=== PATIENT | female | born 1990 | race Caucasian/White ===

== ENCOUNTER → 2017-10-10 | Outpatient (CLI) | payer OTHER ==
[~2017-10-10] MED LIST: AZATHIOPRINE; CIPR500; HYDACE5 PO; IRON; MESA250ER; MULVITMINE; PROM25 PO; REMICADE
== END | disposition home or self-care (01) ==
LOC: LAB EV 10:44
DX: H60.12 Cellulitis of left external ear (principal)
CPT/HCPCS: 87070; 87075; 87077; 87147; 87186; 87205

== ENCOUNTER → 2018-01-31 | Outpatient (CLI) | payer OTHER | END | disposition home or self-care (01) | LOC: LAB SHORT 18:54 → LAB EV 18:54 | DX: H60.399 Other infective otitis externa, unspecified ear (principal) | CPT/HCPCS: 87070; 87186 ==

== ENCOUNTER 2020-03-07 00:46 | Day surgery (SDC) | payer OTHER | END 2020-03-07 22:50 | disposition home or self-care (01) | LOC: WOUND 00:46 | DX: L98.422 Non-pressure chronic ulcer of back with fat layer exposed (principal); A49.02 Methicillin resistant Staphylococcus aureus infection, unspecified site; F17.210 Nicotine dependence, cigarettes, uncomplicated; Z88.6 Allergy status to analgesic agent; Z88.8 Allergy status to other drugs, medicaments and biological substances | CPT/HCPCS: G0463 ==

== ENCOUNTER 2020-03-14 00:41 | Day surgery (SDC) | payer OTHER | END 2020-03-14 23:11 | disposition home or self-care (01) | LOC: WOUND 00:41 | DX: L98.422 Non-pressure chronic ulcer of back with fat layer exposed (principal); A49.02 Methicillin resistant Staphylococcus aureus infection, unspecified site | CPT/HCPCS: 87081; G0463 ==

== ENCOUNTER 2020-03-16 14:19 | Day surgery (SDC) | payer OTHER | END 2020-03-16 23:13 | disposition home or self-care (01) | LOC: WOUND 14:19 | DX: L98.422 Non-pressure chronic ulcer of back with fat layer exposed (principal); A49.02 Methicillin resistant Staphylococcus aureus infection, unspecified site; Z88.5 Allergy status to narcotic agent | CPT/HCPCS: G0463 ==

== ENCOUNTER 2020-03-21 00:23 | Day surgery (SDC) | payer OTHER | END 2020-03-21 22:38 | disposition home or self-care (01) | LOC: WOUND 00:23 | DX: L98.422 Non-pressure chronic ulcer of back with fat layer exposed (principal); A49.02 Methicillin resistant Staphylococcus aureus infection, unspecified site; Z79.891 Long term (current) use of opiate analgesic | CPT/HCPCS: G0463 ==

== ENCOUNTER 2020-03-28 00:29 | Day surgery (SDC) | payer OTHER | END 2020-03-28 22:38 | disposition home or self-care (01) | LOC: WOUND 00:29 | DX: L98.422 Non-pressure chronic ulcer of back with fat layer exposed (principal); A49.02 Methicillin resistant Staphylococcus aureus infection, unspecified site; Z79.891 Long term (current) use of opiate analgesic ==

== ENCOUNTER 2020-04-11 00:25 | Day surgery (SDC) | payer OTHER | END 2020-04-11 22:47 | disposition home or self-care (01) | LOC: WOUND 00:25 | DX: L98.422 Non-pressure chronic ulcer of back with fat layer exposed (principal); A49.02 Methicillin resistant Staphylococcus aureus infection, unspecified site; Z79.891 Long term (current) use of opiate analgesic ==

== ENCOUNTER 2020-08-16 18:41 | Emergency (ER) | payer OTHER ==
[~2020-08-16] VITALS: Ht 172.7 cm; Wt 51.3 kg
[2020-08-16 19:16] LABS: BASOPHILS ABSOLUTE AUTO 0.02 K/mm3 (0.00-0.23); BASOPHILS PERCENT AUTO 0 % (0-2); EOSINOPHILS ABSOLUTE AUTO 0.11 K/mm3 (0.00-0.68); EOSINOPHILS PERCENT AUTO 1 % (0-6); Hematocrit 44.5 % (33.0-51.0); Hemoglobin 14.9 g/dL (11.5-16.0); IMMATURE GRAN ABSOLUTE AUTO 0.03 K/mm3 (0.00-0.10); IMMATURE GRAN PERCENT AUTO 0 % (0-1); LYMPHOCYTES ABSOLUTE AUTO 1.77 K/mm3 (0.84-5.20); LYMPHOCYTES PERCENT AUTO 15 % (21-46); MONOCYTES ABSOLUTE AUTO 0.76 K/mm3 (0.16-1.47); MONOCYTES PERCENT AUTO 6 % (4-13); Mean Corpuscular HGB 29.3 pg (26.0-34.0); Mean Corpuscular HGB Conc 33.5 g/dL (31.5-36.5); Mean Corpuscular Volume 87 fL (80-100); Mean Platelet Volume 11.4 fL (9.1-12.4); NEUTROPHILS ABSOLUTE AUTO 9.38 K/mm3 (1.96-9.15); NEUTROPHILS PERCENT AUTO 78 % (41-73); Platelet Count 167 K/mm3 (150-400); RDW Coefficient Variation 13.3 % (11.7-14.2); RDW Standard Deviation 42.3 fL (35.1-46.3); Red Blood Cell Count 5.09 M/mm3 (3.80-5.20); White Blood Cell Count 12.07 K/mm3 (4.00-11.30)
[2020-08-16 19:30] LABS: Alanine Aminotransfer (ALT/SGP 22 U/L (12-78); Albumin, Blood 3.4 g/dL (3.4-5.0); Albumin/Globulin Ratio 0.8 (0.8-1.8); Alk Phos 98 U/L (50-136); Anion Gap 8 mmol/L (6-16); Aspartate Aminotrans (AST/SGOT 24 U/L (12-37); Bilirubin, Total 0.3 mg/dL (0.1-1.0); Blood Urea Nitrogen 8 mg/dL (8-24); Bun/Creatinine Ratio 14.4 (12.0-20.0); CO2, Blood 26 mmol/L (21-32); Calcium, Blood 9.2 mg/dL (8.5-10.1); Chloride, Blood 108 mmol/L (98-108); Creatinine, Blood 0.56 mg/dL (0.40-1.00); Glomerular Filtration Rate >60 (60-); Glucose, Blood 114 mg/dL (70-99); Potassium, Blood 3.6 mmol/L (3.5-5.5); Sodium, Blood 142 mmol/L (136-145); Total Protein, Blood 7.4 g/dL (6.4-8.2)
[2020-08-16 20:28] LABS: Source, Urine Clean Catch
[2020-08-16 20:32] LABS: Appearance, Urine Cloudy (Clear); Bilirubin, Urine Neg (Neg); Blood, Urine 2+ (Neg); Color, Urine Yellow (P-Yellow); Glucose Qualitative, Urine Neg (Neg); Ketones, Urine 3+ (Neg); Leukocyte Esterase, Urine 1+ (Neg); Nitrite, Urine Neg (Neg); Protein, Urine 1+ (Neg); Specific Gravity, Urine 1.015 (1.003-1.022); Urobilinogen, Urine 1+ (Normal)
[2020-08-16 20:40] LABS: White Blood Cells, Urine 0-2 /hpf (0-5)
[2020-08-16 20:41] LABS: Bacteria Mod /hpf; Squamous Epithelial Cells Many /hpf (Few)
[2020-08-16] MEDS ORDERED: ESCI20 PO (22:46)
== END 2020-08-17 00:02 | disposition home or self-care (01) ==
LOC: ER 18:41
PROVIDERS: Emergency Medicine
DX: K56.41 Fecal impaction (principal); Z88.8 Allergy status to other drugs, medicaments and biological substances; Z79.899 Other long term (current) drug therapy
CPT/HCPCS: 36415; 74177; 80053; 81001; 81025; 83690; 85025; 87086; 96374-59; 96375; 99284-25; J2405; J3010; Q9967

== ENCOUNTER 2020-12-18 12:26 | Emergency (ER) | payer OTHER ==
[~2020-12-18] VITALS: Ht 172.7 cm; Wt 50.4 kg
[~2020-12-18 12:26] MED LIST changes: +ESCI20 PO
[2020-12-18] MEDS ORDERED: CEPH500 PO (13:05)
[2020-12-18] MEDS ORDERED: Bactrim Ds Tab1 EACH PO (13:05)
== END 2020-12-18 13:43 | disposition home or self-care (01) ==
LOC: ER 12:26
DX: L03.114 Cellulitis of left upper limb (principal); R51.9 Headache, unspecified; F17.210 Nicotine dependence, cigarettes, uncomplicated; Z88.8 Allergy status to other drugs, medicaments and biological substances; Z79.899 Other long term (current) drug therapy
CPT/HCPCS: 99283

== ENCOUNTER 2021-10-17 18:16 | Emergency (ER) | payer OTHER ==
[~2021-10-17] VITALS: Ht 172.7 cm; Wt 55.8 kg
[~2021-10-17 18:16] MED LIST changes: +Bactrim Ds Tab1 EACH PO; +CEPH500 PO
[2021-10-17] MEDS ORDERED: Bactrim Ds Tab1 EACH PO (20:16)
[2021-10-17] MEDS ORDERED: AMOCLA875 PO (20:16)
== END 2021-10-17 20:32 | disposition home or self-care (01) ==
LOC: ER 18:16
DX: L03.213 Periorbital cellulitis (principal); F17.210 Nicotine dependence, cigarettes, uncomplicated
CPT/HCPCS: 99283; A9270

== ENCOUNTER 2021-12-19 12:28 | Emergency (ER) | payer OTHER ==
[~2021-12-19] VITALS: Ht 172.7 cm; Wt 54.0 kg
[~2021-12-19 12:28] MED LIST changes: +AMOCLA875 PO
[2021-12-19 13:15] LABS: BASOPHILS ABSOLUTE AUTO 0.03 K/mm3 (0.00-0.23); BASOPHILS PERCENT AUTO 1 % (0-2); EOSINOPHILS ABSOLUTE AUTO 0.13 K/mm3 (0.00-0.68); EOSINOPHILS PERCENT AUTO 2 % (0-6); Hematocrit 47.5 % (33.0-51.0); Hemoglobin 16.2 g/dL (11.5-16.0); IMMATURE GRAN ABSOLUTE AUTO 0.01 K/mm3 (0.00-0.10); IMMATURE GRAN PERCENT AUTO 0 % (0-1); LYMPHOCYTES ABSOLUTE AUTO 2.65 K/mm3 (0.84-5.20); LYMPHOCYTES PERCENT AUTO 46 % (21-46); MONOCYTES ABSOLUTE AUTO 0.36 K/mm3 (0.16-1.47); MONOCYTES PERCENT AUTO 6 % (4-13); Mean Corpuscular HGB 29.2 pg (26.0-34.0); Mean Corpuscular HGB Conc 34.1 g/dL (31.5-36.5); Mean Corpuscular Volume 86 fL (80-100); Mean Platelet Volume 11.3 fL (9.1-12.4); NEUTROPHILS ABSOLUTE AUTO 2.65 K/mm3 (1.96-9.15); NEUTROPHILS PERCENT AUTO 45 % (41-73); Platelet Count 245 K/mm3 (150-400); RDW Coefficient Variation 12.1 % (11.7-14.2); RDW Standard Deviation 38.2 fL (35.1-46.3); Red Blood Cell Count 5.55 M/mm3 (3.80-5.20); White Blood Cell Count 5.83 K/mm3 (4.00-11.30)
[2021-12-19 13:38] LABS: Alanine Aminotransfer (ALT/SGP 24 U/L (12-78); Albumin, Blood 3.7 g/dL (3.4-5.0); Albumin/Globulin Ratio 0.8 (0.8-1.8); Alk Phos 99 U/L (50-136); Anion Gap 5 mmol/L (6-16); Aspartate Aminotrans (AST/SGOT 32 U/L (12-37); Bilirubin, Total 0.4 mg/dL (0.1-1.0); Blood Urea Nitrogen 11 mg/dL (8-24); Bun/Creatinine Ratio 17.1 (12.0-20.0); CO2, Blood 26 mmol/L (21-32); Calcium, Blood 9.5 mg/dL (8.5-10.1); Chloride, Blood 108 mmol/L (98-108); Creatinine, Blood 0.64 mg/dL (0.40-1.00); Globulin, Blood 4.8 g/dL (2.2-4.0); Glomerular Filtration Rate >60 (60-); Glucose, Blood 109 mg/dL (70-99); Potassium, Blood 4.5 mmol/L (3.5-5.5); Sodium, Blood 139 mmol/L (136-145); Total Protein, Blood 8.5 g/dL (6.4-8.2)
[2021-12-25] MEDS ORDERED: Colace250 MG PO (18:39)
== END 2021-12-19 18:24 | disposition home or self-care (01) ==
LOC: ER 12:28
PROVIDERS: Emergency Medicine
DX: R10.13 Epigastric pain (principal); Z87.891 Personal history of nicotine dependence
CPT/HCPCS: 36415; 74177; 80053; 81025; 83605; 83690; 85025; 96374; 96375; 99284-25; A9270; J0780; J3010; J7030; Q9967

== ENCOUNTER 2022-01-11 15:21 | Emergency (ER) | payer OTHER ==
[~2022-01-11] VITALS: Ht 172.7 cm; Wt 54.0 kg
[~2022-01-11 15:21] MED LIST changes: +Colace250 MG PO
[2022-01-11 16:06] LABS: BASOPHILS ABSOLUTE AUTO 0.03 K/mm3 (0.00-0.23); BASOPHILS PERCENT AUTO 0 % (0-2); EOSINOPHILS ABSOLUTE AUTO 0.07 K/mm3 (0.00-0.68); EOSINOPHILS PERCENT AUTO 1 % (0-6); Hematocrit 37.4 % (33.0-51.0); Hemoglobin 12.6 g/dL (11.5-16.0); IMMATURE GRAN ABSOLUTE AUTO 0.03 K/mm3 (0.00-0.10); IMMATURE GRAN PERCENT AUTO 0 % (0-1); LYMPHOCYTES ABSOLUTE AUTO 2.11 K/mm3 (0.84-5.20); LYMPHOCYTES PERCENT AUTO 27 % (21-46); MONOCYTES ABSOLUTE AUTO 0.64 K/mm3 (0.16-1.47); MONOCYTES PERCENT AUTO 8 % (4-13); Mean Corpuscular HGB 29.3 pg (26.0-34.0); Mean Corpuscular HGB Conc 33.7 g/dL (31.5-36.5); Mean Corpuscular Volume 87 fL (80-100); NEUTROPHILS ABSOLUTE AUTO 4.82 K/mm3 (1.96-9.15); NEUTROPHILS PERCENT AUTO 63 % (41-73); RDW Coefficient Variation 12.3 % (11.7-14.2); RDW Standard Deviation 39.4 fL (35.1-46.3)
[2022-01-11 16:14] LABS: Alanine Aminotransfer (ALT/SGP 19 U/L (12-78); Albumin, Blood 3.5 g/dL (3.4-5.0); Albumin/Globulin Ratio 0.9 (0.8-1.8); Alk Phos 86 U/L (50-136); Anion Gap 5 mmol/L (6-16); Aspartate Aminotrans (AST/SGOT 14 U/L (12-37); Bilirubin, Total 0.3 mg/dL (0.1-1.0); Blood Urea Nitrogen 13 mg/dL (8-24); Bun/Creatinine Ratio 20.2 (12.0-20.0); CO2, Blood 27 mmol/L (21-32); Calcium, Blood 8.7 mg/dL (8.5-10.1); Chloride, Blood 105 mmol/L (98-108); Creatinine, Blood 0.64 mg/dL (0.40-1.00); Globulin, Blood 3.9 g/dL (2.2-4.0); Glomerular Filtration Rate >60 (60-); Glucose, Blood 120 mg/dL (70-99); Mean Platelet Volume 11.2 fL (9.1-12.4); Platelet Count 186 K/mm3 (150-400); Potassium, Blood 4.5 mmol/L (3.5-5.5); Sodium, Blood 137 mmol/L (136-145); Total Protein, Blood 7.4 g/dL (6.4-8.2)
[2022-01-11 20:41] LABS: Source, Urine Clean Catch
[2022-01-11 20:50] LABS: Bilirubin, Urine Neg (Neg); Blood, Urine Neg (Neg); Glucose Qualitative, Urine Neg (Neg); Ketones, Urine 2+ (Neg); Leukocyte Esterase, Urine Neg (Neg); Nitrite, Urine Neg (Neg); Protein, Urine 1+ (Neg); Urobilinogen, Urine NORM (Normal)
[2022-01-11 21:01] LABS: Amorphous Mod (0-Heavy); Appearance, Urine Hazy (Clear); Bacteria Few /hpf; Color, Urine Yellow (P-Yellow); Mucus Light (0-Heavy); Red Blood Cells, Urine Not Seen /hpf (0-2); Squamous Epithelial Cells Mod /hpf (Few); Triple Phosphate Crystals Few /hpf; White Blood Cells, Urine Rare /hpf (0-5)
[2022-01-11] MEDS ORDERED: ONDA4ODT MM (23:28)
[2022-01-11] MEDS ORDERED: LAVAP4L PO (23:28)
== END 2022-01-11 23:36 | disposition home or self-care (01) ==
LOC: ER 15:21
PROVIDERS: Student in an Organized Health Care Education/Training Program
DX: K50.90 Crohn's disease, unspecified, without complications (principal); Z87.891 Personal history of nicotine dependence; Z79.899 Other long term (current) drug therapy; Z88.8 Allergy status to other drugs, medicaments and biological substances
CPT/HCPCS: 36415; 74177; 80053; 81001; 85025; 96374; 99284-25; A9270; J2405; Q9967

== ENCOUNTER 2022-04-24 12:57 | Inpatient (IN) | payer OTHER ==
[~2022-04-24] VITALS: Ht 172.7 cm; Wt 48.7 kg
[~2022-04-24 12:57] MED LIST changes: +LAVAP4L PO; +ONDA4ODT MM
[2022-04-24 14:16] LABS: Albumin, Blood 2.9 g/dL (3.4-5.0); Albumin/Globulin Ratio 0.7 (0.8-1.8); Bilirubin, Total 0.3 mg/dL (0.1-1.0); Bun/Creatinine Ratio 11.1 (12.0-20.0); Calcium, Blood 8.7 mg/dL (8.5-10.1); Creatinine, Blood 0.63 mg/dL (0.40-1.00); Globulin, Blood 4.4 g/dL (2.2-4.0); Potassium, Blood 3.8 mmol/L (3.5-5.5); Total Protein, Blood 7.3 g/dL (6.4-8.2)
[2022-04-24 17:00] LABS: BASOPHILS ABSOLUTE AUTO 0.03 K/mm3 (0.00-0.23); BASOPHILS PERCENT AUTO 0 % (0-2); EOSINOPHILS ABSOLUTE AUTO 0.24 K/mm3 (0.00-0.68); EOSINOPHILS PERCENT AUTO 3 % (0-6); Hematocrit 37.8 % (33.0-51.0); Hemoglobin 12.6 g/dL (11.5-16.0); IMMATURE GRAN ABSOLUTE AUTO 0.02 K/mm3 (0.00-0.10); IMMATURE GRAN PERCENT AUTO 0 % (0-1); LYMPHOCYTES ABSOLUTE AUTO 1.85 K/mm3 (0.84-5.20); LYMPHOCYTES PERCENT AUTO 22 % (21-46); MONOCYTES ABSOLUTE AUTO 0.79 K/mm3 (0.16-1.47); MONOCYTES PERCENT AUTO 9 % (4-13); Mean Corpuscular HGB 29.6 pg (26.0-34.0); Mean Corpuscular HGB Conc 33.3 g/dL (31.5-36.5); Mean Corpuscular Volume 89 fL (80-100); Mean Platelet Volume 10.5 fL (9.1-12.4); NEUTROPHILS ABSOLUTE AUTO 5.67 K/mm3 (1.96-9.15); NEUTROPHILS PERCENT AUTO 66 % (41-73); Platelet Count 252 K/mm3 (150-400); RDW Coefficient Variation 11.9 % (11.7-14.2); RDW Standard Deviation 38.1 fL (35.1-46.3); Red Blood Cell Count 4.25 M/mm3 (3.80-5.20)
[2022-04-24] MEDS ORDERED: BUSPIRONE HCL5 M6 PO (21:17)
[2022-04-24] MEDS ORDERED: TRAZ150T57 PO (21:18)
[2022-04-24] MEDS ORDERED: PROP10 PO (21:18)
[2022-04-24] MEDS ORDERED: HUMIRA(CF)40 MG/0.4 SC (21:21)
[2022-04-24] MEDS ORDERED: RIZATRIPTAN5 MG PO (21:23)
[2022-04-25 04:47] LABS: BASOPHILS ABSOLUTE AUTO 0.01 K/mm3 (0.00-0.23); BASOPHILS PERCENT AUTO 0 % (0-2); EOSINOPHILS PERCENT AUTO 0 % (0-6); Hematocrit 35.1 % (33.0-51.0); Hemoglobin 11.8 g/dL (11.5-16.0); IMMATURE GRAN ABSOLUTE AUTO 0.02 K/mm3 (0.00-0.10); IMMATURE GRAN PERCENT AUTO 0 % (0-1); LYMPHOCYTES ABSOLUTE AUTO 0.84 K/mm3 (0.84-5.20); LYMPHOCYTES PERCENT AUTO 10 % (21-46); MONOCYTES ABSOLUTE AUTO 0.07 K/mm3 (0.16-1.47); MONOCYTES PERCENT AUTO 1 % (4-13); Mean Corpuscular HGB 29.4 pg (26.0-34.0); Mean Corpuscular HGB Conc 33.6 g/dL (31.5-36.5); Mean Corpuscular Volume 87 fL (80-100); NEUTROPHILS ABSOLUTE AUTO 7.13 K/mm3 (1.96-9.15); NEUTROPHILS PERCENT AUTO 88 % (41-73); Platelet Count 241 K/mm3 (150-400); RDW Coefficient Variation 11.6 % (11.7-14.2); RDW Standard Deviation 37.6 fL (35.1-46.3); Red Blood Cell Count 4.02 M/mm3 (3.80-5.20); White Blood Cell Count 8.07 K/mm3 (4.00-11.30)
[2022-04-25 05:04] LABS: Bun/Creatinine Ratio 10.2 (12.0-20.0); Creatinine, Blood 0.49 mg/dL (0.40-1.00); Potassium, Blood 4.1 mmol/L (3.5-5.5)
--- NOTE | 2022-04-25 06:04 | NUR ---
SHIFT SUMMARY NOC: PT HAVING PAIN TO ABDOMEN LEFT LOWER QUADRANT. PAIN FAIRLY WELL CONTROLLED WITH CURRENT PRN MEDICATION. PT INDEPENDENT IN ROOM. BM TONIGHT DARK RED MUCUSY. PT BP RUNS SOFT SYS 90'S, PER PT THIS IS NORMAL FOR HER.
[2022-04-25 09:23] LABS: Adenovirus F 40/41 Not Detected (NOT DETECT); Astrovirus Not Detected (NOT DETECT); Campylobacter Sp Not Detected (NOT DETECT); Cryptosporidium Not Detected (NOT DETECT); Cyclospora Cayetanensis Not Detected (NOT DETECT); E. Coli O157 Not Detected (NOT DETECT); Entamoeba Histolytica Not Detected (NOT DETECT); Enteroaggregative E. coli-EAEC Not Detected (NOT DETECT); Enteropathogenic E. coli-EPEC Not Detected (NOT DETECT); Enterotoxigenic E. coli-ETEC Not Detected (NOT DETECT); Giardia Lamblia Not Detected (NOT DETECT); Norovirus GI/GII Not Detected (NOT DETECT); Plesiomonas Shigelloides Not Detected (NOT DETECT); Rotavirus A Not Detected (NOT DETECT); Salmonella Sp Not Detected (NOT DETECT); Sapovirus Not Detected (NOT DETECT); Shiga Toxin-prod E. coli-STEC Not Detected (NOT DETECT); Shigella/Enteroin E. coli-EIEC Not Detected (NOT DETECT); Vibrio Cholerae Not Detected (NOT DETECT); Vibrio Sp Not Detected (NOT DETECT); Yersinia Enterocolitica Not Detected (NOT DETECT)
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
--- NOTE | 2022-04-25 17:21 | NUR ---
SHIFT SUMMARY PATIENT MEDICATED X3 FOR PAIN, X2 FOR NAUSEA. PATIENT DENIES SHORTNESS OF BREATH. PATIENT IS INDEPENDENT IN ROOM. PATIENT INCREASED TO FULL LIQUID DIET. PATIENT TOELRATING OKAY. PATIENT STILL HAVING LOOSE RED STOOLS. DR. COSME. PATIENT HAD VISITORS TODAY. PATIENT SHOWERED. LR INFUSING AT 100MLS/HR. PATIENT IS PLEASANT AND COOPERATIVE WITH CARE.
[2022-04-26 04:41] LABS: Hematocrit 34.7 % (33.0-51.0); Hemoglobin 11.7 g/dL (11.5-16.0); Mean Corpuscular HGB 29.3 pg (26.0-34.0); Mean Corpuscular HGB Conc 33.7 g/dL (31.5-36.5); Mean Corpuscular Volume 87 fL (80-100); Mean Platelet Volume 11.1 fL (9.1-12.4); Platelet Count 274 K/mm3 (150-400); RDW Coefficient Variation 11.6 % (11.7-14.2); RDW Standard Deviation 37.3 fL (35.1-46.3); Red Blood Cell Count 3.99 M/mm3 (3.80-5.20); White Blood Cell Count 15.34 K/mm3 (4.00-11.30)
[2022-04-26 05:08] LABS: Albumin, Blood 2.5 g/dL (3.4-5.0); Albumin/Globulin Ratio 0.6 (0.8-1.8); Bilirubin, Total 0.2 mg/dL (0.1-1.0); C-REACTIVE PROTEIN, EXT RANGE 2.01 mg/dL (0.000-0.300); Calcium, Blood 8.5 mg/dL (8.5-10.1); Creatinine, Blood 0.47 mg/dL (0.40-1.00); Globulin, Blood 4.1 g/dL (2.2-4.0); Potassium, Blood 4.3 mmol/L (3.5-5.5); Total Protein, Blood 6.6 g/dL (6.4-8.2)
--- NOTE | 2022-04-26 05:32 | NUR ---
SHIFT SUMMARY NOC: PT ON FULL LIQUID DIET TOLERATING WELL. PT CONTINUES TO HAVE BLOODY MUCUSY STOOL. PAIN TO ABD LLQ, PRN PAIN MEDS GIVEN. PT EXPRESSES NEED TO RESTART HUMIRA. NO ACUTE EVENTS.
--- NOTE | 2022-04-26 18:26 | NUR ---
SHIFT SUMMARY PATIENT MEDICATED FOR PAIN X3. PATIENT MEDICATED FOR NAUSEA X3. PATIENT DENIES SHORTNESS OF BREATH. PATIENT IS INDEPENDENT IN ROOM. PATIENT ON A FULL LIQUID DIET. PATIENT TOLERATING WELL, ABLE TO EAT MORE THIS EVENING. PATIENT STATES SHE IS STARTING TO FEEL BETTER. GI CONSULT ORDERED, NO GI HOSPICE COORDINATOR UNTIL TOMORROW, 04/27. PATIENT HAD VISITORS TODAY. PATIENT IS PLEASANT AND COOPERATIVE WITH CARE.
--- NOTE | 2022-04-27 04:47 | NUR ---
SHIFT SUMMARY: PT IS A/OX4. SHE HAS BEEN CALM AND COOPERATIVE WITH ALL CARE. SHE HAD NO C/O NAUSEA AND IS TOLERATING THE FULL LIQUID DIET. SHE DOES HAVE INTERMITTENT PAIN IN THE LLQ AND HAS PRN MEDS IN THE EMAR. SHE IS INDEPENDENT IN THE ROOM. CALL LIGHT IS WITHIN REACH AND WE'LL CONTINUE TO MONITOR.
[2022-04-27 04:49] LABS: Hematocrit 34.8 % (33.0-51.0); Hemoglobin 11.4 g/dL (11.5-16.0); Mean Corpuscular HGB 29.5 pg (26.0-34.0); Mean Corpuscular HGB Conc 32.8 g/dL (31.5-36.5); Mean Corpuscular Volume 90 fL (80-100); Mean Platelet Volume 11.3 fL (9.1-12.4); Platelet Count 242 K/mm3 (150-400); RDW Coefficient Variation 11.9 % (11.7-14.2); RDW Standard Deviation 38.5 fL (35.1-46.3); Red Blood Cell Count 3.87 M/mm3 (3.80-5.20); White Blood Cell Count 13.97 K/mm3 (4.00-11.30)
[2022-04-27 05:20] LABS: Albumin, Blood 2.5 g/dL (3.4-5.0); Albumin/Globulin Ratio 0.7 (0.8-1.8); Bilirubin, Total 0.2 mg/dL (0.1-1.0); Bun/Creatinine Ratio 18.6 (12.0-20.0); Calcium, Blood 8.5 mg/dL (8.5-10.1); Creatinine, Blood 0.49 mg/dL (0.40-1.00); Globulin, Blood 3.8 g/dL (2.2-4.0); Potassium, Blood 4.3 mmol/L (3.5-5.5); Total Protein, Blood 6.3 g/dL (6.4-8.2)
--- NOTE | 2022-04-27 19:07 | NUR ---
SHIFT SUMMARY PATIENT A&4X4. INDEPENDENT IN ROOM. RECEIVING IV FLUIDS. ON FULL LIQUIDDIET, TOLERATING WELL. C/O LLQ ANDNAUSEA, MEDICATED PER DEC. HR HEATHER THIS AM 40-50S, HELD PROPRANOLOL. OTHER VSS. REPORT GIVEN TO ONCOMING RN.
--- NOTE | 2022-04-28 04:36 | NUR ---
SHIFT SUMMARY: PT IS A/OX4. SHE DID HAVE C/O PAIN AND WAS MEDICATED WITH PRN MEDICATION VIA EMAR. SHE IS INDEPENDENT IN THE ROOM. SHE CONTINUES TO HAVE LR INFUSING @ 100. HER LAST DOSE OF IV SOLU-MEDROL WAS THIS NOC SHIFT AND SHE BE SHIFTING TO PO. CALL LIGHT IS WITHIN REACH.
[2022-04-28] MEDS ORDERED: PRED20 PO (10:42)
[2022-04-28] MEDS ORDERED: OXAYDO5 M1 PO (10:43)
--- NOTE | 2022-04-28 15:20 | NUR ---
DISCHARGE SUMMARY PATIENT DISCHARGED HOME. DISCHARGE PAPERWORK REVIEWED WITH PATIENT. ALL QUESTIONS ANSWERED. PRESCRIPTIONS FAXED TO [facility] AND HARD SCRIPT FOR OXYCODONE GIVEN TO PATIENT. DOCTOR NOTE FOR WORK GIVEN TO PATIENT. IV D/C'D. PATIENT AND ALL BELONGINGS TAKEN WITH PATIENT AND PATIENT AMBULATED TO PERSONAL CAR AND FRIEND DROVE.
== END 2022-04-28 14:54 | disposition home or self-care (01) | DRG 385 ==
LOC: ER 12:57 → MEDS 12:58
PROVIDERS: Emergency Medicine; Internal Medicine; Physician Assistant; ADMIT Family Medicine
DX: K50.10 Crohn's disease of large intestine without complications (principal); E43 Unspecified severe protein-calorie malnutrition; R64 Cachexia; Z68.1 Body mass index [BMI] 19.9 or less, adult; K52.9 Noninfective gastroenteritis and colitis, unspecified; F17.210 Nicotine dependence, cigarettes, uncomplicated; Z86.14 Personal history of Methicillin resistant Staphylococcus aureus infection; Z98.890 Other specified postprocedural states; Z71.6 Tobacco abuse counseling; Z79.899 Other long term (current) drug therapy; Z88.8 Allergy status to other drugs, medicaments and biological substances
CPT/HCPCS: 36415; 74177; 80048; 80053; 83690; 84145; 84703; 85025; 85027; 86140; 87507; 96374-59; 96375; 96376; 99285-25; A9270; C9113; G0378; J1170; J2405; J2930; J3010; J7030; J7120; J7512; Q9967

== ENCOUNTER 2022-06-20 16:04 | Observation (INO) | payer OTHER ==
[~2022-06-20] VITALS: Ht 172.7 cm; Wt 44.5 kg
[~2022-06-20 16:04] MED LIST changes: +BUSPIRONE HCL5 M6 PO; +HUMIRA(CF)40 MG/0.4 SC; +OXAYDO5 M1 PO; +PRED20 PO; +PROP10 PO; +RIZATRIPTAN5 MG PO; +TRAZ150T57 PO
[2022-06-20] MEDS ORDERED: ONDA4ODT MM (22:16)
[2022-06-20 23:22] LABS: BASOPHILS ABSOLUTE AUTO 0.01 K/mm3 (0.00-0.23); BASOPHILS PERCENT AUTO 0 % (0-2); EOSINOPHILS PERCENT AUTO 0 % (0-6); Hemoglobin 12.3 g/dL (11.5-16.0); IMMATURE GRAN ABSOLUTE AUTO 0.04 K/mm3 (0.00-0.10); IMMATURE GRAN PERCENT AUTO 0 % (0-1); LYMPHOCYTES ABSOLUTE AUTO 1.54 K/mm3 (0.84-5.20); LYMPHOCYTES PERCENT AUTO 13 % (21-46); MONOCYTES ABSOLUTE AUTO 0.58 K/mm3 (0.16-1.47); MONOCYTES PERCENT AUTO 5 % (4-13); Mean Corpuscular HGB 28.7 pg (26.0-34.0); Mean Corpuscular HGB Conc 34.2 g/dL (31.5-36.5); Mean Corpuscular Volume 84 fL (80-100); Mean Platelet Volume 10.1 fL (9.1-12.4); NEUTROPHILS ABSOLUTE AUTO 9.91 K/mm3 (1.96-9.15); NEUTROPHILS PERCENT AUTO 82 % (41-73); Platelet Count 350 K/mm3 (150-400); RDW Coefficient Variation 13.2 % (11.7-14.2); Red Blood Cell Count 4.29 M/mm3 (3.80-5.20); White Blood Cell Count 12.08 K/mm3 (4.00-11.30)
[2022-06-20 23:39] LABS: Albumin, Blood 2.6 g/dL (3.4-5.0); Albumin/Globulin Ratio 0.6 (0.8-1.8); Bilirubin, Total 0.3 mg/dL (0.1-1.0); Bun/Creatinine Ratio 19.4 (12.0-20.0); Calcium, Blood 8.9 mg/dL (8.5-10.1); Creatinine, Blood 0.72 mg/dL (0.40-1.00); Globulin, Blood 4.4 g/dL (2.2-4.0); Magnesium, Blood 2.1 mg/dL (1.6-2.4); Potassium, Blood 3.8 mmol/L (3.5-5.5)
[2022-06-21 04:05] LABS: Source, Urine Clean Catch
[2022-06-21 04:07] LABS: Bilirubin, Urine Neg (Neg); Blood, Urine 1+ (Neg); Glucose Qualitative, Urine Neg (Neg); Ketones, Urine 1+ (Neg); Leukocyte Esterase, Urine 1+ (Neg); Nitrite, Urine Neg (Neg); Protein, Urine 1+ (Neg); Urobilinogen, Urine 2+ (Normal)
[2022-06-21 04:12] LABS: Appearance, Urine Hazy (Clear); Color, Urine Yellow (P-Yellow)
[2022-06-21 04:13] LABS: Amorphous Heavy (0-Heavy); Bacteria Rare /hpf; Red Blood Cells, Urine 0-2 /hpf (0-2); Squamous Epithelial Cells Rare /hpf (Few); White Blood Cells, Urine 0-2 /hpf (0-5)
[2022-06-21 06:31] LABS: BASOPHILS ABSOLUTE AUTO 0.02 K/mm3 (0.00-0.23); BASOPHILS PERCENT AUTO 0 % (0-2); EOSINOPHILS PERCENT AUTO 0 % (0-6); Hemoglobin 12.9 g/dL (11.5-16.0); IMMATURE GRAN ABSOLUTE AUTO 0.06 K/mm3 (0.00-0.10); IMMATURE GRAN PERCENT AUTO 1 % (0-1); LYMPHOCYTES ABSOLUTE AUTO 1.22 K/mm3 (0.84-5.20); LYMPHOCYTES PERCENT AUTO 10 % (21-46); MONOCYTES ABSOLUTE AUTO 0.09 K/mm3 (0.16-1.47); MONOCYTES PERCENT AUTO 1 % (4-13); Mean Corpuscular HGB Conc 33.1 g/dL (31.5-36.5); Mean Corpuscular Volume 85 fL (80-100); Mean Platelet Volume 10.7 fL (9.1-12.4); NEUTROPHILS ABSOLUTE AUTO 10.87 K/mm3 (1.96-9.15); NEUTROPHILS PERCENT AUTO 89 % (41-73); Platelet Count 371 K/mm3 (150-400); RDW Coefficient Variation 13.2 % (11.7-14.2); RDW Standard Deviation 40.6 fL (35.1-46.3); Red Blood Cell Count 4.61 M/mm3 (3.80-5.20); White Blood Cell Count 12.26 K/mm3 (4.00-11.30)
[2022-06-21 06:55] LABS: Bun/Creatinine Ratio 17.5 (12.0-20.0); Creatinine, Blood 0.69 mg/dL (0.40-1.00); Potassium, Blood 3.4 mmol/L (3.5-5.5)
[2022-06-21 20:27] LABS: Campylobacter Sp Not Detected (NOT DETECT); E. Coli O157 Not Detected (NOT DETECT); Enteroaggregative E. coli-EAEC Not Detected (NOT DETECT); Enteropathogenic E. coli-EPEC Not Detected (NOT DETECT); Enterotoxigenic E. coli-ETEC Not Detected (NOT DETECT); Plesiomonas Shigelloides Not Detected (NOT DETECT); Salmonella Sp Not Detected (NOT DETECT); Shiga Toxin-prod E. coli-STEC Not Detected (NOT DETECT); Vibrio Cholerae Not Detected (NOT DETECT); Vibrio Sp Not Detected (NOT DETECT); Yersinia Enterocolitica Not Detected (NOT DETECT)
[2022-06-21 20:28] LABS: Adenovirus F 40/41 Not Detected (NOT DETECT); Astrovirus Not Detected (NOT DETECT); Cryptosporidium Not Detected (NOT DETECT); Cyclospora Cayetanensis Not Detected (NOT DETECT); Entamoeba Histolytica Not Detected (NOT DETECT); Giardia Lamblia Not Detected (NOT DETECT); Norovirus GI/GII Not Detected (NOT DETECT); Rotavirus A Not Detected (NOT DETECT); Sapovirus Not Detected (NOT DETECT); Shigella/Enteroin E. coli-EIEC Not Detected (NOT DETECT)
[2022-06-21 23:06] LABS: U Amphetamine Screen Not Detected; U Barbituate Screen Not Detected; U Benzodiazapine Screen Not Detected; U Buprenorphine Screen DETECTED; U Cannabinoids Screen Not Detected; U Cocaine Screen Not Detected; U Methadone Screen Not Detected; U Methamphetamine Screen Not Detected; U Opiates Screen DETECTED; U Oxycodone Screen Not Detected; U Phencyclidine Screen Not Detected; U Propoxyphene Screen Not Detected
[2022-06-22 06:39] LABS: BASOPHILS ABSOLUTE AUTO 0.01 K/mm3 (0.00-0.23); BASOPHILS PERCENT AUTO 0 % (0-2); EOSINOPHILS PERCENT AUTO 0 % (0-6); Hematocrit 36.1 % (33.0-51.0); Hemoglobin 11.9 g/dL (11.5-16.0); IMMATURE GRAN ABSOLUTE AUTO 0.09 K/mm3 (0.00-0.10); IMMATURE GRAN PERCENT AUTO 1 % (0-1); LYMPHOCYTES ABSOLUTE AUTO 2.88 K/mm3 (0.84-5.20); LYMPHOCYTES PERCENT AUTO 17 % (21-46); MONOCYTES ABSOLUTE AUTO 1.38 K/mm3 (0.16-1.47); MONOCYTES PERCENT AUTO 8 % (4-13); Mean Corpuscular Volume 85 fL (80-100); Mean Platelet Volume 10.2 fL (9.1-12.4); NEUTROPHILS ABSOLUTE AUTO 12.21 K/mm3 (1.96-9.15); NEUTROPHILS PERCENT AUTO 74 % (41-73); Platelet Count 375 K/mm3 (150-400); RDW Coefficient Variation 13.3 % (11.7-14.2); RDW Standard Deviation 41.2 fL (35.1-46.3); Red Blood Cell Count 4.25 M/mm3 (3.80-5.20); White Blood Cell Count 16.57 K/mm3 (4.00-11.30)
[2022-06-22 06:59] LABS: Albumin, Blood 2.5 g/dL (3.4-5.0); Albumin/Globulin Ratio 0.7 (0.8-1.8); Bilirubin, Total 0.4 mg/dL (0.1-1.0); Bun/Creatinine Ratio 17.6 (12.0-20.0); Calcium, Blood 8.7 mg/dL (8.5-10.1); Creatinine, Blood 0.68 mg/dL (0.40-1.00); Globulin, Blood 3.8 g/dL (2.2-4.0); Potassium, Blood 3.4 mmol/L (3.5-5.5); Total Protein, Blood 6.3 g/dL (6.4-8.2)
[2022-06-22] MEDS ORDERED: Norco 5-325 Ta1 EACH PO (11:54)
[2022-06-22] MEDS ORDERED: NICO21TP TOP (11:55)
== END 2022-06-22 13:40 | disposition home or self-care (01) ==
LOC: ER 16:04 → MEDS 16:06 → ERHOLD 06-21 03:09 → MEDS 06-21 03:09 → ER 06-21 03:09 → ERHOLD 06-21 14:37 → MEDS 06-21 14:37
PROVIDERS: Family Medicine; Physician Assistant; Student in an Organized Health Care Education/Training Program; ADMIT Internal Medicine
DX: K50.10 Crohn's disease of large intestine without complications (principal); F17.210 Nicotine dependence, cigarettes, uncomplicated; G47.00 Insomnia, unspecified; N61.1 Abscess of the breast and nipple; F41.9 Anxiety disorder, unspecified; G43.709 Chronic migraine without aura, not intractable, without status migrainosus; F32.A Depression, unspecified; F19.94 Other psychoactive substance use, unspecified with psychoactive substance-induced mood disorder; Z88.5 Allergy status to narcotic agent; Z88.8 Allergy status to other drugs, medicaments and biological substances; Z87.01 Personal history of pneumonia (recurrent)
CPT/HCPCS: 36415; 74177; 80048; 80053; 81001; 83690; 83735; 84443; 85025; 87507; 94760; 96361; 96372-59; 96374-59; 96375; 96376; 99285-25; A9270; J1100; J1650; J1790; J2270; J2405; J2765; J3480; J7030; J7512; Q9967

== ENCOUNTER → 2022-07-09 | Outpatient (CLI) | payer OTHER ==
[~2022-07-09] MED LIST changes: +NICO21TP TOP; +Norco 5-325 Ta1 EACH PO
== END | disposition home or self-care (01) ==
LOC: LAB SHORT 17:09 → LAB 17:09
DX: N61.1 Abscess of the breast and nipple (principal)
CPT/HCPCS: 87070; 87075; 87077; 87147; 87186; 87205

== ENCOUNTER → 2022-10-17 | Outpatient (CLI) | payer OTHER ==
[2022-10-18 10:31] LABS: Candida species (DNA Probe) Negative (NEGATIVE); G. vaginalis (DNA Probe) Negative (NEGATIVE); T. vaginalis (DNA Probe) Positive (NEGATIVE)
[2022-10-19 12:11] LABS: HPV 16 Negative (Negative); HPV 18 Negative (Negative); HPV OTHER HR TYPES Negative (Negative)
== END | disposition home or self-care (01) ==
LOC: LAB SHORT 12:00
PROVIDERS: Family Medicine
DX: N76.0 Acute vaginitis (principal); B96.89 Other specified bacterial agents as the cause of diseases classified elsewhere
CPT/HCPCS: 87480; 87510; 87660

== ENCOUNTER 2023-06-21 18:04 | Emergency (ER) | payer OTHER ==
[~2023-06-21] VITALS: Ht 172.7 cm; Wt 46.7 kg
[2023-06-21 19:15] LABS: Hematocrit 46.1 % (33.0-51.0); Mean Corpuscular HGB 29.9 pg (26.0-34.0); Mean Corpuscular HGB Conc 34.7 g/dL (31.5-36.5); Mean Corpuscular Volume 86 fL (80-100); Mean Platelet Volume 11.6 fL (9.1-12.4); Platelet Count 161 K/mm3 (150-400); RDW Coefficient Variation 12.4 % (11.7-14.2); RDW Standard Deviation 38.8 fL (35.1-46.3); Red Blood Cell Count 5.35 M/mm3 (3.80-5.20); White Blood Cell Count 6.01 K/mm3 (4.00-11.30)
[2023-06-21 19:32] LABS: Albumin/Globulin Ratio 0.9 (0.8-1.8); Bilirubin, Total 0.5 mg/dL (0.1-1.0); Bun/Creatinine Ratio 13.2 (12.0-20.0); Calcium, Blood 9.2 mg/dL (8.5-10.1); Creatinine, Blood 0.61 mg/dL (0.40-1.00); Globulin, Blood 4.4 g/dL (2.2-4.0); Potassium, Blood 4.3 mmol/L (3.5-5.5); Total Protein, Blood 8.4 g/dL (6.4-8.2)
[2023-06-21 19:40] LABS: BASOPHILS ABSOLUTE MAN 0.06 K/mm3 (0.00-0.23); BASOPHILS PERCENT MAN 1 % (0-2); EOSINOPHILS PERCENT MAN 0 % (0-6); LYMPHOCYTES % ATYPICAL MANUAL 4 % (0-0); LYMPHOCYTES ABSOLUTE MAN 1.32 K/mm3 (0.84-5.20); LYMPHOCYTES PERCENT MAN 18 % (21-46); MONOCYTES ABSOLUTE MAN 0.42 K/mm3 (0.16-1.47); MONOCYTES PERCENT MAN 7 % (4-13); SEG NEUTROPHILS PERCENT MAN 70 % (41-73); TOTAL CELLS COUNTED 100
[2023-06-21 23:30] VITALS: BP 121/82
== END 2023-06-21 23:37 | disposition home or self-care (01) ==
LOC: ER 18:04
PROVIDERS: Student in an Organized Health Care Education/Training Program
DX: K59.00 Constipation, unspecified (principal); Z88.6 Allergy status to analgesic agent; Z88.8 Allergy status to other drugs, medicaments and biological substances; Z79.899 Other long term (current) drug therapy; Z79.52 Long term (current) use of systemic steroids; F17.200 Nicotine dependence, unspecified, uncomplicated
CPT/HCPCS: 74177; 80053; 85025; 96374-59; 99284-25; A9270; J2405; Q9967

== ENCOUNTER 2024-06-30 14:43 | Emergency (ER) | payer OTHER ==
[~2024-06-30] VITALS: Ht 172.7 cm; Wt 48.5 kg
[2024-06-30 15:25] LABS: BASOPHILS ABSOLUTE AUTO 0.03 K/mm3 (0.00-0.23); BASOPHILS PERCENT AUTO 0 % (0-2); EOSINOPHILS PERCENT AUTO 1 % (0-6); Hematocrit 39.3 % (33.0-51.0); Hemoglobin 13.5 g/dL (11.5-16.0); IMMATURE GRAN ABSOLUTE AUTO 0.02 K/mm3 (0.00-0.10); IMMATURE GRAN PERCENT AUTO 0 % (0-1); LYMPHOCYTES ABSOLUTE AUTO 1.28 K/mm3 (0.84-5.20); LYMPHOCYTES PERCENT AUTO 16 % (21-46); MONOCYTES ABSOLUTE AUTO 0.45 K/mm3 (0.16-1.47); MONOCYTES PERCENT AUTO 6 % (4-13); Mean Corpuscular HGB 32.5 pg (26.0-34.0); Mean Corpuscular HGB Conc 34.4 g/dL (31.5-36.5); Mean Corpuscular Volume 95 fL (80-100); Mean Platelet Volume 10.9 fL (9.1-12.4); NEUTROPHILS ABSOLUTE AUTO 5.96 K/mm3 (1.96-9.15); NEUTROPHILS PERCENT AUTO 76 % (41-73); Platelet Count 235 K/mm3 (150-400); RDW Coefficient Variation 11.8 % (11.7-14.2); RDW Standard Deviation 41.1 fL (35.1-46.3); Red Blood Cell Count 4.15 M/mm3 (3.80-5.20); White Blood Cell Count 7.84 K/mm3 (4.00-11.30)
[2024-06-30 15:50] LABS: Albumin, Blood 2.7 g/dL (3.4-5.0); Albumin/Globulin Ratio 0.6 (0.8-1.8); Bilirubin, Total 0.4 mg/dL (0.1-1.0); Bun/Creatinine Ratio 14.2 (12.0-20.0); Calcium, Blood 8.8 mg/dL (8.5-10.1); Creatinine, Blood 0.49 mg/dL (0.40-1.00); Globulin, Blood 4.6 g/dL (2.2-4.0); Potassium, Blood 3.9 mmol/L (3.5-5.5); Total Protein, Blood 7.3 g/dL (6.4-8.2)
[2024-06-30 17:22] LABS: Source, Urine Clean Catch
[2024-06-30 17:27] LABS: Appearance, Urine Clear (Clear); Bilirubin, Urine Neg (Neg); Blood, Urine 3+ (Neg); Color, Urine Yellow (P-Yellow); Glucose Qualitative, Urine Neg (Neg); Ketones, Urine Neg (Neg); Leukocyte Esterase, Urine Neg (Neg); Nitrite, Urine Neg (Neg); Protein, Urine Neg (Neg); Urobilinogen, Urine NORM (Normal)
[2024-06-30] MEDS ORDERED: Lactated Ringer's 1,000 ML IV ONE (17:30)
[2024-06-30 17:50] LABS: White Blood Cells, Urine 0-2 /hpf (0-5)
[2024-06-30 17:51] LABS: Bacteria Few /hpf; Squamous Epithelial Cells Mod /hpf (Few)
[2024-06-30] MEDS ORDERED: Metoclopramide HCl 5MG / ML 2ML Vial IV ONE (18:25)
[2024-06-30] MEDS ORDERED: METO5A PO (19:29)
[2024-06-30] MEDS ORDERED: HYDCOR2.5C PR (19:29)
[2024-06-30] MEDS ORDERED: MIRALAX17 GM PO (19:29)
[2024-06-30 19:44] VITALS: BP 118/70
== END 2024-06-30 19:45 | disposition home or self-care (01) ==
LOC: ER 14:43
PROVIDERS: Physician Assistant
DX: K64.9 Unspecified hemorrhoids (principal); K59.00 Constipation, unspecified; F17.200 Nicotine dependence, unspecified, uncomplicated; Z87.19 Personal history of other diseases of the digestive system; Z79.899 Other long term (current) drug therapy; Z88.6 Allergy status to analgesic agent; Z88.8 Allergy status to other drugs, medicaments and biological substances
CPT/HCPCS: 74177; 80053; 81001; 83690; 84703; 85025; 96361; 96374-59; 99284-25; J2765; J7120; Q9967

== ENCOUNTER 2024-10-15 16:54 | Emergency (ER) | payer OTHER ==
[~2024-10-15] VITALS: Ht 172.7 cm; Wt 40.8 kg
[~2024-10-15 16:54] MED LIST changes: +HYDCOR2.5C PR; +METO5A PO; +MIRALAX17 GM PO
[2024-10-15 17:27] VITALS: BP 122/76
[2024-10-15 19:02] LABS: Albumin, Blood 3.5 g/dL (3.4-5.0); Albumin/Globulin Ratio 0.7 (0.8-1.8); Bilirubin, Total 0.5 mg/dL (0.1-1.0); Bun/Creatinine Ratio 10.5 (12.0-20.0); Calcium, Blood 9.8 mg/dL (8.5-10.1); Creatinine, Blood 0.77 mg/dL (0.40-1.00); Globulin, Blood 5.2 g/dL (2.2-4.0); Potassium, Blood 4.1 mmol/L (3.5-5.5); Total Protein, Blood 8.7 g/dL (6.4-8.2)
[2024-10-15 19:10] LABS: BASOPHILS ABSOLUTE AUTO 0.04 K/mm3 (0.00-0.23); BASOPHILS PERCENT AUTO 1 % (0-2); EOSINOPHILS ABSOLUTE AUTO 0.14 K/mm3 (0.00-0.68); EOSINOPHILS PERCENT AUTO 2 % (0-6); Hematocrit 50.8 % (33.0-51.0); Hemoglobin 17.5 g/dL (11.5-16.0); IMMATURE GRAN ABSOLUTE AUTO 0.08 K/mm3 (0.00-0.10); IMMATURE GRAN PERCENT AUTO 1 % (0-1); LYMPHOCYTES ABSOLUTE AUTO 2.21 K/mm3 (0.84-5.20); LYMPHOCYTES PERCENT AUTO 29 % (21-46); MONOCYTES ABSOLUTE AUTO 0.39 K/mm3 (0.16-1.47); MONOCYTES PERCENT AUTO 5 % (4-13); Mean Corpuscular HGB 28.7 pg (26.0-34.0); Mean Corpuscular HGB Conc 34.4 g/dL (31.5-36.5); Mean Corpuscular Volume 83 fL (80-100); NEUTROPHILS ABSOLUTE AUTO 4.89 K/mm3 (1.96-9.15); NEUTROPHILS PERCENT AUTO 63 % (41-73); RDW Coefficient Variation 12.9 % (11.7-14.2); RDW Standard Deviation 38.8 fL (35.1-46.3); Red Blood Cell Count 6.09 M/mm3 (3.80-5.20); White Blood Cell Count 7.75 K/mm3 (4.00-11.30)
[2024-10-15 19:27] LABS: Mean Platelet Volume 11.2 fL (9.1-12.4); Platelet Count 216 K/mm3 (150-400)
[2024-10-15] MEDS ORDERED: Ketorolac Tromethamine 30mg Vial IV ONE (23:15)
[2024-10-15] MEDS ORDERED: Ondansetron HCl 2 MG / ML 2ML Vial IV ONE (23:15)
[2024-10-15] MEDS ORDERED: Dicyclomine HCl 10 MG/ML 2ML Amp IM ONE (23:20)
[2024-10-15] MEDS ORDERED: NS 1,000 ML IV SCH (23:20)
[2024-10-16] MEDS ORDERED: FentaNYL Citrate 50 MCG/ML 2 ML Injection IV ONE (01:05)
[2024-10-16] MEDS ORDERED: Magnesium Citrate 300 ML BTL PO ONE (01:05)
[2024-10-16 01:23] LABS: Source, Urine Clean Catch
[2024-10-16 01:54] LABS: Bilirubin, Urine Neg (Neg); Blood, Urine Neg (Neg); Glucose Qualitative, Urine Neg (Neg); Ketones, Urine Neg (Neg); Leukocyte Esterase, Urine 1+ (Neg); Nitrite, Urine Neg (Neg); Protein, Urine 2+ (Neg); Urobilinogen, Urine 1+ (Normal)
[2024-10-16] MEDS ORDERED: ADULT GLYCERIN1 EACH PR (01:55)
[2024-10-16] MEDS ORDERED: ONDA4ODT MM (01:55)
[2024-10-16] MEDS ORDERED: RX Prepack 2 Tabs Ondansetron ODT 4MG UD ONE (01:55)
[2024-10-16 02:03] LABS: Appearance, Urine Turbid (Clear); Color, Urine Yellow (P-Yellow)
[2024-10-16 02:04] LABS: Amorphous Heavy (0-Heavy); Bacteria Few /hpf; Red Blood Cells, Urine 0-2 /hpf (0-2); Squamous Epithelial Cells Few /hpf (Few); White Blood Cells, Urine 0-2 /hpf (0-5)
== END 2024-10-16 02:20 | disposition home or self-care (01) ==
LOC: ER 16:54
PROVIDERS: Physician Assistant; Student in an Organized Health Care Education/Training Program
DX: K59.00 Constipation, unspecified (principal); R11.2 Nausea with vomiting, unspecified; K50.90 Crohn's disease, unspecified, without complications; F17.200 Nicotine dependence, unspecified, uncomplicated; Z88.6 Allergy status to analgesic agent; Z88.8 Allergy status to other drugs, medicaments and biological substances; Z88.3 Allergy status to other anti-infective agents; Z79.899 Other long term (current) drug therapy
CPT/HCPCS: 74176; 80053; 81001; 81025; 83690; 85025; 87086; 96372-59; 96374; 96375; 99284-25; A9270; J0500; J1885; J2405; J3010; J7030

== ENCOUNTER 2024-10-26 03:34 | Day surgery (SDC) | payer OTHER ==
[~2024-10-26 03:34] MED LIST changes: +ADULT GLYCERIN1 EACH PR
[2024-10-26] MEDS ORDERED: Lidocaine HCl 4% Cream 5 GM ONE (13:22)
== END 2024-10-26 23:00 | disposition home or self-care (01) ==
LOC: WOUND 03:34
DX: L02.413 Cutaneous abscess of right upper limb (principal); K50.90 Crohn's disease, unspecified, without complications; F17.210 Nicotine dependence, cigarettes, uncomplicated
CPT/HCPCS: A6213; A9270; G0463

== ENCOUNTER 2024-11-03 | Day surgery (SDC) | payer OTHER | END 2024-11-03 23:00 | disposition home or self-care (01) | LOC: WOUND | DX: S51.801D Unspecified open wound of right forearm, subsequent encounter (principal); L02.413 Cutaneous abscess of right upper limb; X58.XXXD Exposure to other specified factors, subsequent encounter | CPT/HCPCS: G0463 ==

== ENCOUNTER 2024-11-09 06:40 | Day surgery (SDC) | payer OTHER | END 2024-11-09 23:00 | disposition home or self-care (01) | LOC: WOUND 06:40 | DX: S51.801D Unspecified open wound of right forearm, subsequent encounter (principal); X58.XXXD Exposure to other specified factors, subsequent encounter; K50.90 Crohn's disease, unspecified, without complications | CPT/HCPCS: G0463 ==

== ENCOUNTER 2024-12-25 03:23 | Day surgery (SDC) | payer OTHER | END 2024-12-25 23:00 | disposition home or self-care (01) | LOC: WOUND 03:23 | DX: Z09 Encounter for follow-up examination after completed treatment for conditions other than malignant neoplasm (principal); Z87.828 Personal history of other (healed) physical injury and trauma | CPT/HCPCS: G0463 ==